=== PATIENT | male | born 1980 | race Caucasian/White ===

== ENCOUNTER 2017-06-12 22:47 | Emergency (ER) | payer BC ==
[2017-06-12] MEDS ORDERED: Penicillin G Benzathine 1,200,000 Units/2 ML Syringe IM ONE (23:20)
[2017-06-12] MEDS ORDERED: predniSONE 20 MG Tab PO ONE (23:20)
--- NOTE | 2017-06-12 23:27 | EDM.PDOC ---
ED HPI GENERAL MEDICAL PROBLEM - General Chief Complaint: Respiratory Problem Stated Complaint: SORE THROAT Time Seen by Provider: 06/12/17 23:06 Source of Information: Reports: Patient, RN Notes Reviewed - History of Present Illness INITIAL COMMENTS - FREE TEXT/NARRATIVE: 36-year-old male comes in with severe sore throat. He did have a cough about one or 2 weeks ago and now that also has come back. It is the severe throat pain that brings him in tonight. Very painful to swallow last night and today. He states his girlfriend back home also has a sore throat at this time. He's had some chills, no definite fever. He is coughing up some yellowish-green phlegm at this time. Throat Pain Score (Numeric/FACES): 6 - Related Data Allergies Allergy/AdvReac Type Severity Reaction Status Date / Time No Known Allergies Allergy Verified 06/12/17 22:56 Home Meds: Home Meds . [No Known Home Meds] 06/12/17 [History] Past Medical History - Past Health History Medical/Surgical History: Denies Medical/Surgical History Social & Family History - Tobacco Use Smoking Status *Q: Current Every Day Smoker Years of Tobacco use: 10 Packs/Tins Daily: 1 Used Tobacco, but Quit: No Second Hand Smoke Exposure: No - Caffeine Use Caffeine Use: Reports: Energy Drinks - Recreational Drug Use Recreational Drug Use: No ED ROS GENERAL - Review of Systems Review Of Systems: See Below Constitutional: Reports: Chills. Denies: Fever HEENT: Reports: Throat Pain Respiratory: Reports: Cough, Sputum. Denies: Shortness of Breath Cardiovascular: Reports: Chest Pain (Anterior chest discomfort with coughing) GI/Abdominal: Denies: Abdominal Pain, Nausea, Vomiting Musculoskeletal: Reports: No Symptoms Skin: Reports: No Symptoms Neurological: Reports: No Symptoms ED EXAM, GENERAL - Physical Exam Exam: See Below General Appearance: Alert, Moderate Distress Throat/Mouth: Inflammation (Posterior pharynx is inflamed, no exudate) Head: No: Facial Swelling Neck: Supple, Lymphadenopathy (L), Lymphadenopathy (R) (Mild anterior) Respiratory/Chest: No Respiratory Distress ( and anterior), Lungs Clear, Normal Breath Sounds Cardiovascular: Tachycardia Extremities: Normal Inspection, Normal Range of Motion Neurological: Oriented, No Motor/Sensory Deficits Skin Exam: Warm, Dry, Normal Color Course - Vital Signs Last Recorded V/S: Last Vital Signs Temp 97.8 F 06/12/17 22:54 Pulse 106 H 06/12/17 22:54 Resp 19 06/12/17 22:54 BP 158/92 H 06/12/17 22:54 Pulse Ox 100 06/12/17 22:54 - Orders/Labs/Meds Meds: Medications Discontinued Medications Generic Name Dose Route Start Last Admin Trade Name Frederic PRN Reason Stop Dose Admin Penicillin G Benzathine 1.2 millunits 06/12/17 23:20 06/12/17 23:31 Bicillin L-A IM 06/12/17 23:21 1.2 millunits ONETIME ONE Administration Prednisone 40 mg 06/12/17 23:20 06/12/17 23:30 Prednisone PO 06/12/17 23:21 40 mg ONETIME ONE Administration Departure - Departure Time of Disposition: 23:35 Disposition: Home, Self-Care 01 Condition: Fair Clinical Impression: Pharyngitis due to Streptococcus species - Discharge Information Instructions: Pharyngitis Referrals: PCP,None [Primary Care Provider] - Forms: ED Department Discharge Additional Instructions: Try drink plenty of fluids, alternate liquid Tylenol and liquid ibuprofen as needed for severe discomfort, you have been given Bicillin 1.2 million units IM which will cover you for streptococcal throat infection. You have been given your first dose of prednisone this evening, continue that every morning daily for the next 5 days as prescribed. Follow-up clinic if not much better within 3- 5 days as expected, return to ED as needed if symptoms worsening in any way.
== END 2017-06-12 23:40 | disposition home or self-care (01) ==
LOC: JD.ED 22:47
DX: J02.0 Streptococcal pharyngitis (principal); F17.210 Nicotine dependence, cigarettes, uncomplicated
CPT/HCPCS: 96372; 99283; A9270; J0561

== ENCOUNTER 2018-06-04 20:20 | Emergency (ER) | payer BC ==
[2018-06-04] MEDS ORDERED: LORazepam 1 MG Tab PO ONE (21:05)
--- NOTE | 2018-06-04 21:25 | EDM.PDOC ---
<Lisa Barreto - Last Filed: 06/04/18 22:02> ED HPI GENERAL MEDICAL PROBLEM - General Chief Complaint: General Stated Complaint: NUMB FACE/ARMS/HEART POUNDING Time Seen by Provider: 06/04/18 20:25 Source of Information: Reports: Patient History Limitations: Reports: No Limitations - History of Present Illness INITIAL COMMENTS - FREE TEXT/NARRATIVE: Milton is a 37-year-old man with history of acid reflux and no other known medical problems who reports sudden onset of dizziness and numbness 45 minutes prior to arrival in the ED. He describes the "dizziness" as feeling close to passing out. He felt better when he sat down and rested. With the episode, he experienced palpitations (heart racing), shortness of breath, headache, and sensation of numbness/tingling in his whole body, particularly the perioral area and hands and feet. The episode lasted ~5 minutes, and all symptoms resolved other than the numbness/tingling and headache. He describes the headache as dull, 1-2/10 in intensity, and in the bilateral temporal area. No recent head injury, no history of migraine headaches. Milton reports he has felt "run down" lately and has had night sweats and weakness for the last two days. He denies cough, fever/chills, chest pain/ discomfort, visual changes, difficulty walking/talking/swallowing, abdominal pain, nausea/vomiting, and urinary symptoms. He reports he has worked 28 straight days at work, and that his work is his only stressor. He denies any relationship problems or any other stressors. 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 He has a commercial drivers license and is required to have a full physical every two years. He reports having had high blood pressure at a recent physical, which resolved with rest. He reports negative blood glucose screening for diabetes. Milton has smoked cigarettes 1/2 ppd since age 18 (12.5 pack/years), and drinks an average of 1 drink per day and 8-10 drinks at a time on the weekends. He reports having elevated liver enzymes in the past. He drinks one Monster energy drink every morning and occasionally drinks Coke, but denies any other caffeine intake. He does not take any supplements or use pre-workout supplements. He denies any illicit drug use. His only medication is Prevacid. Family history is significant for HTN, DM2, CAD, AR, and PVD in his father, who of an acute AR at age 62. His mother has HTN and AICD for symptomatic bradycardia. He reports his mother and sister have had anxiety attacks, but he denies a personal history of anxiety or anxiety attacks. Onset: Today, Sudden - Related Data Allergies Allergy/AdvReac Type Severity Reaction Status Date / Time No Known Allergies Allergy Verified 06/05/18 00:20 Home Meds: Home Meds Lansoprazole [Prevacid] 30 mg PO DAILY 06/04/18 [History] hydrOXYzine pamoate [Vistaril] 25 mg PO BID PRN #10 cap 06/04/18 [Rx] Past Medical History - Past Health History Medical/Surgical History: Denies Medical/Surgical History Social & Family History - Caffeine Use Caffeine Use: Reports: Energy Drinks, Soda ED ROS GENERAL - Review of Systems Review Of Systems: See Below Constitutional: Reports: Malaise, Weakness, Night Sweats, Diaphoresis. Denies: Fever, Chills HEENT: Denies: Vision Change Respiratory: Reports: Shortness of Breath (with episode, as noted in HPI). Denies: Pleuritic Chest Pain, Cough Cardiovascular: Reports: Lightheadedness (as noted in HPI - near-syncopal episode), Palpitations. Denies: Chest Pain, Blood Pressure Problem Endocrine: Reports: Fatigue. Denies: Polydypsia, Polyuria GI/Abdominal: Denies: Abdominal Pain, Nausea, Vomiting : Denies: Dysuria Musculoskeletal: Reports: No Symptoms Neurological: Reports: Dizziness, Headache, Numbness, Tingling, Weakness. Denies: Confusion, Tremors, Trouble Speaking, Difficulty Walking, Change in Speech Psychiatric: Reports: No Symptoms (denies anxiety) Hematologic/Lymphatic: Reports: No Symptoms Immunologic: Reports: No Symptoms ED EXAM, GENERAL - Physical Exam Exam: See Below Free Text/Narrative:: Pt appears acutely anxious, flushed, uncomfortable. Exam Limited By: No Limitations General Appearance: Alert, Anxious, Moderate Distress Eye Exam: Bilateral Eye: EOMI, Normal Inspection Neck: Normal Inspection Respiratory/Chest: Lungs Clear, Normal Breath Sounds, Chest Non-Tender Cardiovascular: Normal Peripheral Pulses, No Murmur, Tachycardia Peripheral Pulses: 2+: Radial (L), Radial (R), Posterior Tibial (L), Posterior Tibial (R) GI/Abdominal: Soft, Non-Tender Extremities: Normal Capillary Refill Neurological: Alert, Oriented, CN II-XII Intact, Normal Cognition, Normal Reflexes, No Motor/Sensory Deficits Psychiatric: Anxious Skin Exam: Warm, Dry Course - Vital Signs Last Recorded V/S: Last Vital Signs Temp 37.2 C 06/04/18 20:31 Pulse 102 H 06/04/18 20:31 Resp 20 06/04/18 20:31 BP 154/97 H 06/04/18 20:31 Pulse Ox 100 06/04/18 20:31 - Orders/Labs/Meds Orders: Active Orders 24 hr Category Date Time Status EKG Documentation Completion [RC] STAT Care 06/04/18 21:02 Active Chest 2V [CR] Stat Exams 06/04/18 21:02 Taken Labs: Laboratory Tests 06/04/18 06/04/18 06/04/18 Range/Units 21:20 21:20 21:20 WBC 9.42 H (4.23-9.07) K/mm3 RBC 5.22 (4.63-6.08) M/mm3 Hgb 16.1 (13.7-17.5) gm/L Hct 45.9 (40.1-51.0) % MCV 87.9 (79.0-92.2) fl MCH 30.8 (25.7-32.2) pg MCHC 35.1 (32.2-35.5) g/dl RDW Std Deviation 42.1 (35.1-43.9) fL Plt Count 264 (163-337) K/mm3 MPV 10.3 (9.4-12.3) fl Neut % (Auto) 45.9 (34.0-67.9) % Lymph % (Auto) 38.1 (21.8-53.1) % [place] % (Auto) 12.1 (5.3-12.2) % Eos % (Auto) 2.9 (0.8-7.0) Baso % (Auto) 0.5 (0.1-1.2) % Neut # (Auto) 4.32 (1.78-5.38) K/mm3 Lymph # (Auto) 3.59 H (1.32-3.57) K/mm3 [place] # (Auto) 1.14 H (0.30-0.82) K/mm3 Eos # (Auto) 0.27 (0.04-0.54) K/mm3 Baso # (Auto) 0.05 (0.01-0.08) K/mm3 PT 10.3 (9.5-12.1) SECONDS INR 0.94 D-Dimer, Quantitative 0.26 (0.19-0.50) mg/L Sodium 139 (136-145) mEq/L Potassium 3.4 L (3.5-5.1) mEq/L Chloride 102 (98-107) mEq/L Carbon Dioxide 24 (21-32) mEq/L Anion Gap 16.4 H (5-15) BUN 11 (7-18) mg/dL Creatinine 1.1 (0.7-1.3) mg/dL Est Cr Clr Drug Dosing 106.90 mL/min Estimated GFR (MDRD) > 60 (>60) mL/min BUN/Creatinine Ratio 10.0 L (14-18) Glucose 85 (74-106) mg/dL Calcium 9.2 (8.5-10.1) mg/dL Total Bilirubin 0.2 (0.2-1.0) mg/dL AST 25 (15-37) U/L ALT 40 (16-63) U/L Alkaline Phosphatase 86 (46-116) U/L CK-MB (CK-2) 0.8 (0-3.6) ng/ml Troponin I < 0.017 (0.00-0.056) ng/mL NT-Pro-B Natriuret Pep (0-125) pg/mL Total Protein 7.4 (6.4-8.2) g/dl Albumin 3.7 (3.4-5.0) g/dl Globulin 3.7 gm/dL Albumin/Globulin Ratio 1.0 (1-2) TSH 3rd Generation 2.228 (0.358-3.74) uIU/mL 06/04/18 06/04/18 06/04/18 Range/Units 21:20 23:05 23:05 WBC (4.23-9.07) K/mm3 RBC (4.63-6.08) M/mm3 Hgb (13.7-17.5) gm/L Hct (40.1-51.0) % MCV (79.0-92.2) fl MCH (25.7-32.2) pg MCHC (32.2-35.5) g/dl RDW Std Deviation (35.1-43.9) fL Plt Count (163-337) K/mm3 MPV (9.4-12.3) fl Neut % (Auto) (34.0-67.9) % Lymph % (Auto) (21.8-53.1) % [place] % (Auto) (5.3-12.2) % Eos % (Auto) (0.8-7.0) Baso % (Auto) (0.1-1.2) % Neut # (Auto) (1.78-5.38) K/mm3 Lymph # (Auto) (1.32-3.57) K/mm3 [place] # (Auto) (0.30-0.82) K/mm3 Eos # (Auto) (0.04-0.54) K/mm3 Baso # (Auto) (0.01-0.08) K/mm3 PT (9.5-12.1) SECONDS INR D-Dimer, Quantitative (0.19-0.50) mg/L Sodium (136-145) mEq/L Potassium (3.5-5.1) mEq/L Chloride (98-107) mEq/L Carbon Dioxide (21-32) mEq/L Anion Gap (5-15) BUN (7-18) mg/dL Creatinine (0.7-1.3) mg/dL Est Cr Clr Drug Dosing mL/min Estimated GFR (MDRD) (>60) mL/min BUN/Creatinine Ratio (14-18) Glucose (74-106) mg/dL Calcium (8.5-10.1) mg/dL Total Bilirubin (0.2-1.0) mg/dL AST (15-37) U/L ALT (16-63) U/L Alkaline Phosphatase (46-116) U/L CK-MB (CK-2) 0.8 (0-3.6) ng/ml Troponin I < 0.017 (0.00-0.056) ng/mL NT-Pro-B Natriuret Pep 19 (0-125) pg/mL Total Protein (6.4-8.2) g/dl Albumin (3.4-5.0) g/dl Globulin gm/dL Albumin/Globulin Ratio (1-2) TSH 3rd Generation (0.358-3.74) uIU/mL Meds: Medications Discontinued Medications Generic Name Dose Route Start Last Admin Trade Name Freq PRN Reason Stop Dose Admin Lorazepam 1 mg 06/04/18 21:05 06/04/18 21:25 Ativan PO 06/04/18 21:06 1 mg ONETIME ONE Administration Potassium Chloride 20 meq 06/04/18 22:41 06/04/18 22:46 Klor-Con M20 PO 06/04/18 22:42 20 meq ONETIME ONE Administration Departure - Departure Disposition: Home, Self-Care 01 Clinical Impression: Acute reaction to situational stress, Anxiety in acute stress reaction, Dizziness - Discharge Information Prescriptions: hydrOXYzine pamoate [Vistaril] 25 mg PO BID PRN #10 cap PRN Reason: Anxiety Instructions: Living With Anxiety, Stress Referrals: PCP,None [Primary Care Provider] - 2 Days (Please establish care with primary care provider as soon as possible and follow-up with PCP of your choice. Or Call [phone] establish care with primary care provider) Forms: ED Department Discharge <Katy Xiao - Last Filed: 06/04/18 22:44> Course - Re-Assessments/Exams Free Text/Narrative Re-Assessment/Exam: 06/04/18 22:00 At this time patient reevaluated be checked. Patient appears to be relaxed and resting comfortably on the stretcher. He denies any chest tightness or pain or shortness of breath, headache, dizziness, or numbness or tingling sensation to his upper extremities. He stated that he felt much better after the use of lorazepam given in the emergency department. Departure - Departure Condition: Good <Ibeth Sal - Last Filed: 06/05/18 03:46> ED HPI GENERAL MEDICAL PROBLEM - General Source of Information: Reports: Patient History Limitations: Reports: No Limitations ED ROS GENERAL - Review of Systems Review Of Systems: See Below ED EXAM, GENERAL - Physical Exam Exam: See Below Course - Re-Assessments/Exams Free Text/Narrative Re-Assessment/Exam: 06/04/18 23:49 I saw the patient independently and have reviewed and confirmed the history, exam, review of systems and past/family and medical history, and medical decision making as documented by the medical student. I have edited the note to reflect my findings. Departure - Departure Time of Disposition: 23:49
[2018-06-04] MEDS ORDERED: Potassium Chloride 20 MEQ Tab.ER PO ONE (22:41)
--- NOTE | 2018-06-06 09:34 | CR ---
Chest: Two views of the chest were obtained. Comparison: No prior chest x-ray. Heart size and mediastinum are normal. Lungs are clear. Bony structures are unremarkable. Impression: 1. Nothing acute is seen on two-view chest x-ray. Diagnostic code #1
== END 2018-06-05 00:14 | disposition home or self-care (01) ==
LOC: JD.ED 20:20
DX: F43.0 Acute stress reaction (principal); F41.9 Anxiety disorder, unspecified; R42 Dizziness and giddiness; Z79.899 Other long term (current) drug therapy
CPT/HCPCS: 36415; 71046; 71046-26; 80053; 82553; 83880; 84443; 84484; 85025; 85379; 85610; 93005; 93010; 99284; 99285-25; A9270-GY